=== PATIENT | female | born 1970 | race Caucasian/White ===

== ENCOUNTER 2022-04-12 21:25 | Emergency (ER) | payer OTHER, SELFPAY ==
--- NOTE | ~2022-04-12 | XR_ITS ---
EXAMINATION: XR knee RT 3V DATE: 04/12/2022 22:19 INDICATION: Right knee injury. TECHNIQUE: 3 views of right knee were obtained. COMPARISON: None. FINDINGS: Bone alignment is normal. No fracture. There is moderate osteoarthritis of lateral compartm ent and mild osteoarthritis of medial and patellofemoral compartments. No knee joint effusion. IMPRESSION: 1. Moderate right knee osteoarthritis. Reviewed, dictated and finalized at location A.
--- NOTE | ~2022-04-12 | XR_ITS ---
EXAMINATION: XR femur RT min 2V DATE: 04/12/2022 22:19 INDICATION: Right thigh injury. TECHNIQUE: 2 views of right femur on 4 radiographs were obtained. COMPARISON: None. FINDINGS: Bone alignment is normal. No fracture. Right hip joint space is normal. Right knee demonstr ates moderate osteoarthritis of lateral compartment and mild osteoarthritis of medial and patellofemo ral compartments. No knee joint effusion. IMPRESSION: 1. Moderate right knee osteoarthritis. Reviewed, dictated and finalized at location A.
--- NOTE | ~2022-04-12 | XR_ITS ---
EXAMINATION: XR ankle RT min 3V DATE: 04/12/2022 22:19 INDICATION: Right ankle injury. TECHNIQUE: 4 views of right ankle were obtained. COMPARISON: None. FINDINGS: Bone alignment is normal. There is an old fracture deformity of calcaneal tuberosity. 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 No acute fracture. Joint spaces are normal. There is dystrophic calcifications of the tibiofibular syndesmosis. IMPRESSION: 1. No acute fracture. Reviewed, dictated and finalized at location A. IMPRESSION: 1. No acute fracture.
--- NOTE | ~2022-04-12 | XR_ITS ---
EXAMINATION: XR tibia fibula RT 2V DATE: 04/12/2022 22:19 INDICATION: Right lower leg crush injury. TECHNIQUE: 2 views of right tibia and fibula on 4 radiographs were obtained. COMPARISON: None. FINDINGS: Bone alignment is normal. There is an old healed fracture deformity of calcaneal tuberosity . 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 No acute fracture. There is at least mild tricompartmental osteoarthritis of right knee. There are dystrophic calcifications of t he tibiofibular syndesmosis. IMPRESSION: 1. No acute fracture. Reviewed, dictated and finalized at location A. IMPRESSION: 1. No acute fracture.
[2022-04-12 21:33] VITALS: BP 121/82; PULSE 74; RESP 20; TEMP 36.4; O2SAT 99
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
[2022-04-12 22:34] VITALS: BP 127/80; PULSE 78; RESP 15; O2SAT 98
[2022-04-13 00:39] VITALS: BP 111/64; PULSE 85; RESP 16; TEMP 36.8; O2SAT 99
== END 2022-04-13 00:41 | disposition home or self-care (01) ==
PROVIDERS: Emergency Provider Nurse Practitioner Family
DX: S80.02XA Contusion of left knee, initial encounter (principal); S90.02XA Contusion of left ankle, initial encounter; S80.12XA Contusion of left lower leg, initial encounter; W20.8XXA Other cause of strike by thrown, projected or falling object, initial encounter
CPT/HCPCS: 73552; 73562; 73590; 73610; 99284